=== PATIENT | female | born 1950 | race Caucasian/White ===

== ENCOUNTER → 2016-05-11 10:42 | Day surgery (SDC) | payer MEDICARE ==
[~2016-05-11 10:42] MED LIST: Acetaminophen TAB* 325 MG PO PRN; Buffered Lidocaine 1% SYRIN* 3 ML/SYR SYRINGE INTRADERM ONE; Cyclopentolate 1% OPTH.SOL* 2 ML BTL ONE; Flurbiprofen 0.03% OPTH.SOL* 2.5 ML BTL ONE; Lidocaine 1% MPF* 2 ML VIAL ONE; Midazolam* 1 MG/ML 2 ML VIAL (2 MG) ONE; Neomycin/Polymy/Dex OPHTH.OIN* 3.5 GM ONE; Phenylephrine 2.5% OPTH.SOL* 2 ML BTL ONE; Tetracaine 0.5% OPTH.SOL 4 ML* 1 DROP BTL ONE; Tropicamide 1% OPTH.SOL* BTL ONE; fentaNYL* 50 MCG/ML 2 ML VIAL (100 MCG VIAL) ONE
[2016-05-11 13:25] VITALS: BP 148/81
--- NOTE | 2016-05-12 00:24 | OP ---
DATE OF OPERATION: 05/11/16 [facility] DATE OF : 52 SURGEON: Dr. Santosh Pina. CREPE MACHINE OPERATOR: None. ANESTHESIOLOGIST: Burke Loja MD ANESTHESIA: Topical with intravenous sedation. PRE-OP DIAGNOSIS: Cataract, right eye. POST-OP DIAGNOSIS: Cataract, right eye. OPERATIVE PROCEDURE: Phacoemulsification and cataract extraction with posterior chamber intraocular lens implant, right eye. COMPLICATIONS: None. BLOOD LOSS: None. DESCRIPTION OF PROCEDURE: The patient was brought to the operating room and received a small amount of intra-venous sedation. A drop of Tetracaine was placed in her right eye. She was prepped and draped in the usual sterile fashion for ophthalmic surgery and attention was directed to the right eye where a speculum was placed. A paracentesis was created at the 11 o'clock position and 0.1 cc of 1 percent preservative-free Lidocaine was injected into the anterior chamber followed by DisCoVisc. The eye was digitally stabilized while a 2.75 mm keratome was used to create a triplanar clear corneal incision at the 9 o'clock position. A continuous curvilinear capsulorrhexis was created with a cystotome and Utrata forceps. BSS on a cannula was used to hydrodissect the lens from the capsule. Phacoemulsification was performed in a divide-and- conquer technique to create four fragments which were removed. Residual cortical material was removed with irrigation and aspiration. DisCoVisc was used to inflate the capsular bag and an AU00T0 21.5 diopter lens was folded and inserted into the capsular bag. DisCoVisc was removed using irrigation and aspiration. BSS on a cannula was used to hydrate the corneal stroma and seal the wound. At the end of the case the pupil was round and the lens was centered. The eye was of normal pressure and the wound was water tight. The speculum was removed and topical Maxitrol ointment was placed on the surface of the eye. The eye was closed, patched and shielded and the patient was sent to the recovery room in stable condition with post operative instructions and follow-up appointment given. [id number]/CPS #: [id number] MTDD
== END | disposition home or self-care (01) ==
LOC: OREAST 10:42
PROVIDERS: ATTEND Ophthalmology
DX: H25.11 Age-related nuclear cataract, right eye (principal); Z87.891 Personal history of nicotine dependence; F33.9 Major depressive disorder, recurrent, unspecified
CPT/HCPCS: J2250; J3010; V2632

== ENCOUNTER → 2016-05-18 08:59 | Day surgery (SDC) | payer MEDICARE ==
[~2016-05-18 08:59] MED LIST changes: -Midazolam* 1 MG/ML 2 ML VIAL (2 MG) ONE; +Midazolam* 1 MG/ML 5 ML VIAL (5 MG) ONE
[2016-05-18 11:05] VITALS: BP 117/68
--- NOTE | 2016-05-18 16:47 | OP ---
DATE OF OPERATION/DATE OF DICTATION: 05/18/2016 - [facility] DATE OF : 1950. SURGEON: Dr. Santosh Pina. RAG GRADER: None. ANESTHESIOLOGIST: August Nelson MD ANESTHESIA: Topical with intravenous sedation. PRE-OP DIAGNOSIS: Cataract, left eye. POST-OP DIAGNOSIS: Cataract, left eye. OPERATIVE PROCEDURE: Phacoemulsification and cataract extraction with posterior chamber intraocular lens implant, left eye. COMPLICATIONS: None. BLOOD LOSS: None. DESCRIPTION OF PROCEDURE: The patient was brought to the operating room and received a small amount of intravenous sedation. A drop of Tetracaine was placed in her left eye. She was prepped and draped in the usual sterile fashion for ophthalmic surgery and attention was directed to the left eye where a speculum was placed. A paracentesis was created at the 5 o'clock position and 0.1 cc of 1 percent preservative-free Lidocaine was injected into the anterior chamber followed by DisCoVisc. The eye was digitally stabilized while a 2.75 mm keratome was used to create a triplanar clear corneal incision at the 3 o'clock position. A continuous curvilinear capsulorrhexis was created with a cystotome and Utrata forceps. BSS on a cannula was used to hydrodissect the lens from the capsule. Phacoemulsification was performed in a divide-and- conquer technique to create four fragments which were removed. Residual cortical material was removed with irrigation and aspiration. DisCoVisc was used to inflate the capsular bag and an AUOOTO 23.0 diopter lens was folded and inserted into the capsular bag. DisCoVisc was removed using irrigation and aspiration. BSS on a cannula was used to hydrate the corneal stroma and seal the wound. At the end of the case the pupil was round and the lens was centered. The eye was of normal pressure and the wound was water tight. The speculum was removed and topical Maxitrol ointment was placed on the surface of the eye. The eye was closed, patched and shielded, and the patient was sent to the recovery room in stable condition with post operative instructions and follow-up appointment given. [id number]/CPS #: [id number] MTDD
== END | disposition home or self-care (01) ==
LOC: OREAST 08:59
PROVIDERS: ATTEND Ophthalmology
DX: H25.12 Age-related nuclear cataract, left eye (principal); I10 Essential (primary) hypertension; Z87.891 Personal history of nicotine dependence
CPT/HCPCS: J2250; J3010; V2632

== ENCOUNTER 2018-07-18 07:46 | Emergency (ER) | payer MEDICARE ==
--- NOTE | 2018-07-18 10:50 | UC ---
Respiratory Complaint HPI - HPI Summary HPI Summary: 3 DAYS OF COUGH, CONGESTION, SUBJECTIVE FEVER/CHILLS/SWEATS, HEADACHE AND OVERALL BODY ACHES. PATIENT FEELS TIRED. SHE DOES HAVE A HISTORY OF CHRONIC LOW BACK PAIN BUT IS COMPLAINING OF MID BACK PAIN NOW. NO TRAUMA OR RECENT INJURY. SHE DOES LIVE IN A [place] AREA AND STATES IT IS PROBABLE THAT SHE'S HAD MULTIPLE TICK BITES. SHE DENIES ANY URINARY SYMPTOMS. 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 - History of Current Complaint Chief Complaint: UCRespiratory Stated Complaint: RESP ISSUE BACK PAIN SKIN FEELS LIKE IT IS BURNING Time Seen by Provider: 07/18/18 10:12 Hx Obtained From: Patient Onset/Duration: Gradual Onset, Lasting Days, Still Present Timing: Constant Severity Initially: Moderate Severity Currently: Moderate Pain Intensity: 7 Pain Scale Used: 0-10 Numeric Character: Cough: Nonproductive Aggravating Factors: Nothing Alleviating Factors: Nothing Associated Signs And Symptoms: Positive: Fever - SUBJECTIVE, Chills, URI, Nasal Congestion. Negative: Dyspnea, Wheezing - Allergies/Home Medications Allergies/Adverse Reactions: Allergies Allergy/AdvReac Type Severity Reaction Status Date / Time No Known Allergies Allergy Verified 07/18/18 08:23 Home Medications: Home Medications Aspirin 81 mg CHEW TAB* 1 tab PO DAILY 07/18/18 [History Confirmed 07/18/18] PMH/Surg Hx/FS Hx/Imm Hx - Additional Past Medical History Additional PMH: CHRONIC BACK PAIN Cardiovascular History: Hypertension - Surgical History Surgical History: Yes Surgery Procedure, Year, and Place: bilateral mammoplasty, decompressive laminectomy, tonsilectomy, adenoidectomy, cholecystectomy. dorsal column stimulator - Family History Known Family History: Positive: Non-Contributory Family History: NON CONTRIBUTORY - Social History Alcohol Use: None Substance Use Type: None Substance Use Comment - Amount & Last Used: oxycodone Smoking Status (MU): Former Smoker Type: Cigarettes Have You Smoked in the Last Year: No When Did the Patient Quit Smoking/Using Tobacco: quit 40 years Review of Systems All Other Systems Reviewed And Are Negative: Yes Constitutional: Positive: Fever, Chills, Fatigue ENT: Positive: Nasal Discharge Respiratory: Positive: Cough Cardiovascular: Positive: Negative Gastrointestinal: Positive: Negative Musculoskeletal: Positive: Myalgia Neurological: Positive: Headache Physical Exam Triage Information Reviewed: Yes Appearance: Well-Appearing, No Pain Distress, Well-Nourished Vital Signs: Initial Vital Signs Temp 96.6 F 07/18/18 08:19 Pulse 86 07/18/18 08:19 Resp 18 07/18/18 08:19 BP 116/92 07/18/18 08:19 Pulse Ox 98 07/18/18 08:19 Laboratory Tests 07/18/18 09:07 POC Urine Color Dark yellow POC Urine Clarity Clear POC Urine pH 5.5 POC Ur Specif [place] >= 1.030 POC Urine Protein 1+ A POC Ur Glucose (UA) Negative POC Urine Ketones Negative POC Urine Blood Negative POC Urine Nitrite Negative POC Urine Bilirubin 1+ A POC Urine Urobilinogen 1.0 POC U Leukocyte Esteras Trace A Vital Signs Reviewed: Yes Eyes: Positive: Conjunctiva Clear ENT: Positive: Hearing grossly normal, Pharynx normal, TMs normal Neck: Positive: Supple, Nontender, No Lymphadenopathy Respiratory Exam: Normal Cardiovascular Exam: Normal Abdomen Description: Positive: Soft Musculoskeletal: Positive: No Edema Neurological: Positive: Alert Psychological: Positive: Age Appropriate Behavior Skin: Negative: Rashes Respiratory Course/Dx - Course Course Of Treatment: PATIENT LIKELY HAS A VIRALLY MEDIATED RESPIRATORY INFECTION WHICH SHOULD RESOLVE ON ITS OWN WITH TIME. ADVISED CONSERVATIVE MANAGEMENT WITH REST, HYDRATION AND OTC MEDS NEEDED. PATIENT LIVES IN A [place] AREA AND HAS A HISTORY OF TICK BITES IN THE PAST. HER DOG SLEEPS IN HER BED WITH HER AND ALSO HAS HAD MULTIPLE TICKS WHICH SHE IS CONSISTENTLY PULLING OFF. GIVEN HER CONSTELLATION OF SYMPTOMS AND RISK FACTORS WILL GO AHEAD AND CHECK LYME SEROLOGY WELL CBC, CMP AND TSH. PATIENT IS HERE VISITING FROM [place] FOR AT LEAST ONE MONTH. WILL FOLLOW-UP [facility] OR RETURN HERE IF NEEDED. URINE ALSO SENT FOR CULTURE. - Differential Dx/Diagnosis Provider Diagnosis: Acute URI, Arthralgia Discharge - Sign-Out/Discharge Documenting (check all that apply): Patient Departure All imaging exams completed and their final reports reviewed: No Studies - Discharge Plan Condition: Stable Disposition: HOME Patient Education Materials: Upper Respiratory Infection (ED), Arthralgia (ED) Referrals: [facility] [Outside] - If Needed Chau Licona MD [Primary Care Provider] - If Needed Additional Instructions: YOUR RESPIRATORY SYMPTOMS ARE LIKELY VIRALLY MEDIATED AND SHOULD RESOLVE ON THEIR OWN WITH TIME. NO INDICATION FOR ANTIBIOTICS AT PRESENT. REST, HYDRATE, OTC MEDS NEEDED. SEEK FOLLOW-UP IF YOU ARE NOT IMPROVING OVER THE NEXT 1-2 WEEKS. GIVEN YOUR DIFFUSE ACHINESS, HEADACHE, FATIGUE AND SUBJECTIVE FEVER IN ADDITION TO YOUR HISTORY OF TICK EXPOSURE AND LIVING IN THE [place]. WILL TEST FOR LYME DISEASE TODAY. WILL ALSO CHECK BLOOD COUNT, METABOLIC PANEL AND THYROID. WE WILL CALL YOU WITH ANY ABNORMAL RESULTS. - Billing Disposition and Condition Condition: STABLE Disposition: Home
[2018-07-18 10:59] VITALS: BP 93/60
[2018-07-18 16:11] LABS: ABS Lymphocytes 0.6 10^3/ul (1.0-4.8); ABS Monocytes 0.3 10^3/ul (0-0.8); ABS Neutrophils 3.1 10^3/ul (1.5-7.7); Hematocrit 41 % (35-47); Hemoglobin 13.9 g/dL (12.0-16.0); Mean Corpuscular HGB Conc 34 g/dL (31-36); Mean Corpuscular Hemoglobin 31 pg (27-31); Mean Corpuscular Volume 90 fL (80-97); Mean Platelet Volume 7.2 fL (7.4-10.4); Nucleated Red Blood Cells % 0.1; Platelet Count 133 10^3/uL (150-450); Red Blood Count 4.56 10^6 /uL (3.70-4.87); Red Cell Distribution Width 14 % (10.5-15)
[2018-07-18 16:34] LABS: TSH (Thyroid Stimulating Horm) 2.25 mcIU/mL (0.34-5.60)
[2018-07-18 16:39] LABS: Albumin 4.3 g/dL (3.2-5.2); Calcium 9.3 mg/dL (8.6-10.3); Potassium 4.2 mmol/L (3.5-5.0); Total Bilirubin 0.5 mg/dL (0.2-1.0)
[2018-07-18 16:45] LABS: BUN/Creatinine Ratio 11.3 (8-20); EGFR African American 69.3 (>60); EGFR Non-African American 57.3 (>60); Globulin 2.2 g/dL (2-4); Total Protein 6.5 g/dL (6.4-8.9)
== END 2018-07-18 10:40 | disposition home or self-care (01) ==
LOC: UCEAST 07:46
DX: J06.9 Acute upper respiratory infection, unspecified (principal); M54.6 Pain in thoracic spine; M79.10 Myalgia, unspecified site; R50.9 Fever, unspecified; G89.29 Other chronic pain; M54.5 Low back pain; Z79.82 Long term (current) use of aspirin; Z87.891 Personal history of nicotine dependence
CPT/HCPCS: 36415; 80053; 81003; 84443; 85025; 86618; 87086; 99211; G0463

== ENCOUNTER 2019-06-05 13:22 | Emergency (ER) | payer MEDICARE ==
[2019-06-05 13:39] VITALS: BP 135/85
--- NOTE | 2019-06-05 13:46 | UC ---
Hip/Pelvis Pain - HPI Summary HPI Summary: 69-year-old woman comes in with a chief complaint of right upper leg pain. But a week ago patient was hiking and she was climbing up a steep section of the [place] had sudden onset of right upper anterior leg and inguinal canal area pain. Pain is worse with any kind of movement especially hip flexion. Has been eating and drinking normally has normal bowels normal urination. Has used anti-inflammatories and oxycodone with minimal relief. 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 - History Of Current Complaint Chief Complaint: UCLowerExtremity Stated Complaint: LEG PAIN Time Seen by Provider: 06/05/19 13:29 Pain Intensity: 10 - Allergies/Home Medications Allergies/Adverse Reactions: Allergies Allergy/AdvReac Type Severity Reaction Status Date / Time No Known Allergies Allergy Verified 06/05/19 13:33 Home Medications: Home Medications Oxycodone TAB(NF) [Oxycodone HCl 10 MG] 10 mg PO Q6H PRN 05/29/12 [History Confirmed 06/05/19] Multivit-Minerals/Folic Acid [Multi Adult Gummies] 1 chw PO DAILY 04/03/15 [ History Confirmed 06/05/19] buPROPion SR TAB* [Wellbutrin SR TAB*] 150 mg PO TID 07/28/15 [History Confirmed 06/05/19] Lisinopril [Zestril 10 MG-] 10 mg PO DAILY 03/30/16 [History Confirmed 06/05/19] Cyclobenzaprine TAB* [Flexeril 10 MG TAB*] 10 mg PO TID PRN #15 tab 06/05/19 [Rx ] Melatonin 1 dose PO QPM 06/05/19 [History Confirmed 06/05/19] PMH/Surg Hx/FS Hx/Imm Hx Previously Healthy: Yes Cardiovascular History: Hypertension - Surgical History Surgical History: Yes Surgery Procedure, Year, and Place: bilateral mammoplasty, decompressive laminectomy, tonsilectomy, adenoidectomy, cholecystectomy. dorsal column stimulator - Family History Known Family History: Positive: Non-Contributory Family History: NON CONTRIBUTORY - Social History Alcohol Use: None Substance Use Type: Prescribed Substance Use Comment - Amount & Last Used: oxycodone Smoking Status (MU): Former Smoker Type: Cigarettes Have You Smoked in the Last Year: No When Did the Patient Quit Smoking/Using Tobacco: quit 40 years Review of Systems All Other Systems Reviewed And Are Negative: Yes Constitutional: Positive: Negative Skin: Positive: Negative Eyes: Positive: Negative ENT: Positive: Negative Respiratory: Positive: Negative Gastrointestinal: Positive: Negative Genitourinary: Positive: Negative Motor: Positive: Other - see hpi Neurovascular: Positive: Negative Musculoskeletal: Positive: Other: - see hpi Neurological/Mental Status: Positive: Negative Psychological: Positive: Negative Is Patient Immunocompromised?: No Physical Exam Triage Information Reviewed: Yes Appearance: Well-Nourished, Pain Distress - MODERATE WITH EXAM Vital Signs: Initial Vital Signs Temp 97.0 F 06/05/19 13:28 Pulse 97 06/05/19 13:28 Resp 18 06/05/19 13:28 BP 135/85 06/05/19 13:28 Pulse Ox 97 06/05/19 13:28 Vital Signs Reviewed: Yes Eye Exam: Normal Eyes: Positive: Conjunctiva Clear Neck: Positive: Supple Respiratory: Positive: No respiratory distress Abdomen Description: Positive: Other: - Tender to palpation right lower quadrant. No masses palpated. Not tender on the right ASIS. Some tenderness in the inguinal canal on the right. Musculoskeletal: Positive: Other: - The right quadriceps is nontender to palpation the inner thigh on the right is nontender to palpation. Patient experiences a lot of pain with attempting to perform right flexion. Neurological: Positive: Alert Psychological: Positive: Age Appropriate Behavior Skin Exam: Normal Hip Injury Course/Dx - Course Course Of Treatment: Crankshaft Grinder: Fredy Yusuf Daniel ([id number]) Hospice Patient Care Secretary: FRANKLYN ( FRANKLYN) Report Date: 06/05/2019 14:55:00 Report Status: Final ====== Start of Report Content Patient Name: KYLEIGH MARIE Ordering Physician: Lobito English MD : 1950 Age: 69 Sex: F Location: [facility] Exam Date: 06/05/19 1410 ADM Status: REG ER Observation Date/Time: Order Information: CT ABD/PEL W/O Accession Number: [id number] CPT: 57654 CLINICAL HISTORY: rlq pain,worse with rt hip flexion COMPARISON: None relevant available at the time of dictation. TECHNIQUE: Multiple contiguous axial CT scans were obtained of the abdomen and pelvis, without intravenous contrast enhancement. Coronal and sagittal multiplanar reformations are submitted for review. Oral contrast was not administered. FINDINGS: LUNG BASES: The lung bases are clear. LIVER: The liver is diffusely low in attenuation compared to the spleen. There are no focal hepatic parenchymal masses. BILE DUCTS: There is dilatation the common duct up to 1.9 cm. GALLBLADDER: The gallbladder is not visualized. Surgical clips are noted in the gallbladder fossa. PANCREAS: The pancreas is normal, without mass or ductal dilatation. SPLEEN: Normal in size and appearance. UPPER GI TRACT: Evaluation of the gastrointestinal tract is limited by incomplete gastric distention. The upper GI tract is unremarkable. SMALL BOWEL AND MESENTERY: The small bowel is normal in contour, course, and caliber. There is no obstruction or dilatation. COLON: The colon is normal in contour, course, caliber. There is no pericolonic inflammatory change. There is a tubular , vermiform, hollow viscus that is blind ending, and originates from the cecum, consistent with a normal appendix. There is no periappendiceal inflammatory change. This is best seen on axial images 5158. ADRENALS: Normal bilaterally. KIDNEYS: There is a simple cyst of the lower pole of the right kidney. BLADDER: The bladder is smooth in contour. PELVIC ORGANS: The uterus is fibroid. AORTA: There is calcific atherosclerotic disease of the abdominal aorta and its branches, without aneurysmal dilatation IVC: Unremarkable LYMPH NODES: There is no lymphadenopathy by size criteria. ABDOMINAL WALL: There is no evidence for abdominal wall hernia. BONES AND SOFT TISSUES: There is diffuse osteopenia. Degenerative changes are noted of the spine. There is osteoporosis of the hips and SI joints.. A dorsal column stimulator is noted. OTHER: None IMPRESSION: 1. DILATATION THE COMMON DUCT. STATUS POST CHOLECYSTECTOMY. 2. HEPATIC STEATOSIS 3. ATHEROSCLEROSIS. 4. NORMAL APPENDIX 5. NO APPRECIABLE HYDRONEPHROSIS OR NEPHROLITHIASIS. < Electronically signed by Fredy Yusuf MD in [place]> 06/05/19 1451 Dictated By : Fredy Yusuf MD Dictated Date/Time: 06/05/191444 Transcribed Date/Time : 06/05/191444 Copy to: CC:Fredy Yusuf MD; Chau Licona MD; Lobito English MD Imaging - [facility] Imaging - [facility] [address] [address] ph ([phone]) ph ) ph ([phone]) End of Report Content I discussed the CT report with patient. No abnormality seen on CT. Most likely cause of the pain is injury of the right hip flexors. Patient will continue with the nonsteroidal anti-inflammatories she will also add ice and more rest. She will continue with her own oxycodone that she uses chronically for her back. I added Flexeril. Patient will follow-up with sports medicine or orthopedics. If the patient is worse with worse pain or feels ill she needs to get reevaluated right away. - Differential Dx/Diagnosis Provider Diagnosis: Right hip pain, Right lower quadrant abdominal pain Discharge ED - Sign-Out/Discharge Documenting (check all that apply): Patient Departure All imaging exams completed and their final reports reviewed: Yes - Discharge Plan Condition: Stable Disposition: HOME Prescriptions: Cyclobenzaprine TAB* [Flexeril 10 MG TAB*] 10 mg PO TID PRN #15 tab PRN Reason: Pain - Moderate Patient Education Materials: Acute Abdominal Pain (ED), Hip Pain (ED) Referrals: Chau Licona MD [Primary Care Provider] - [facility] [Provider Group] Carter Rich MD [Medical Doctor] - Additional Instructions: FOLLOW UP WITH SPORTS MEDICINE OR ORTHOPEDICS. GET REEVALUATED IF NOT IMPROVED OR WORSE; PAIN, FEVER, YOU FEEL ILL OR ANY QUESTIONS OR CONCERNS. - Billing Disposition and Condition Condition: STABLE Disposition: Home
== END 2019-06-05 15:23 | disposition home or self-care (01) ==
LOC: UCEAST 13:22
DX: M25.551 Pain in right hip (principal); R10.31 Right lower quadrant pain; K76.0 Fatty (change of) liver, not elsewhere classified; I70.0 Atherosclerosis of aorta; I10 Essential (primary) hypertension; Z79.899 Other long term (current) drug therapy; Z90.49 Acquired absence of other specified parts of digestive tract; Z87.891 Personal history of nicotine dependence
CPT/HCPCS: 74176; 99212; G0463